=== PATIENT | female | born 1970 | race African-American/Black ===

== ENCOUNTER 2016-07-09 18:13 | Emergency (ER) | payer OTHER ==
[~2016-07-09 18:13] MED LIST: DELTASONE20 MG PO; GUAIFENESIN-COD10 ML PO; PERCOCET 325 MG1 TA2 PO; PROVENTIL HFA6.7 GM INH; ZITHROMAX250 M2 PO
[2016-07-09] MEDS ORDERED: METOPROLOL SUCC50 M2 PO (18:56)
[2016-07-09] MEDS ORDERED: CLOPIDOGREL75 M1 PO (18:57)
[2016-07-09] MEDS ORDERED: AMLODIPINE BESY10 M1 PO (18:57)
[2016-07-09] MEDS ORDERED: PROAIR HFA8.5 GM INH (19:00)
--- NOTE | 2016-07-09 19:01 | ED INFLUENZA/URI COMPLAINT ---
History of Present Illness General Chief Complaint: General Adult Stated Complaint: "I THINK I HAVE A HEAD COLD"...MULTIPLE COMP. Source: patient Exam Limitations: no limitations Vital Signs & Intake/Output Vital Signs & Intake/Output Vital Signs Date Time Temp Pulse Resp B/P Pulse O2 O2 Flow FiO2 Ox Delivery Rate 07/09 2099 98.1 92 22 166/74 95 Room Air 07/09 1936 97 07/09 191 Room Air 07/09 1824 97.8 83 22 155/78 97 Room Air Allergies Coded Allergies: penicillin V (Intermediate, HIVES 12/01/15) lisinopril (LIPS SWELL AND DYSPNEA 07/09/16) Reconcile Medications Albuterol Sulfate (Proair Hfa) 90 MCG HFA.AER.AD 2 PUF INH Q4-6 PRN PRN RESPIRATORY (Reported) Albuterol Sulfate (Ventolin Hfa) 90 MCG HFA.AER.AD 2 PUF INH Q4-6 PRN PRN WHEEZING Amlodipine Besylate (Unknown Strength) TABLET (Unknown Dose) PO DAILY HEART/BP (Reported) Azithromycin (Zithromax) 500 MG TABLET 1 TAB PO DAILY BRONCHITIS Benzonatate (Tessalon Perle) 100 MG CAPSULE 1 CAP PO TID PRN COUGH Clopidogrel Bisulfate (Clopidogrel) 75 MG TABLET 1 TAB PO DAILY BLOOD THINNER (Reported) Metoprolol Succinate 50 MG TAB.ER.24H 1 TAB PO DAILY HEART/BP (Reported) Prednisone 10 MG TABLET 1 TAB PO BID INFLAMMATION DAY1/DAY2 FOUR TABS DAILY DAY3/DAY4 THREE TABS DAILY DAY5/DAY6 TWO TABS DAILY DAY7 ONE TAB Triage Note: PER PT COUGH, CONGESTED SINCE SATURDAY, DID NOT SEE Triage Nurses Notes Reviewed? yes Onset: Gradual Duration: constant Timing: recent history Severity: moderate Severity Numbers: 5 HPI: Patient is a 45-year-old female with past medical history of asthma who presents to emergency room with a 2 to three-day history of upper rest for a complaints such as cough wheezing or pleuritic chest pain and generalized weakness and fatigue. Patient has been using her albuterol inhaler with minimal relief of symptoms. Patient has positive sick contacts at home. Denies any chest pain and arm pain jaw pain hemoptysis leg swelling and is otherwise without complaints. (NOLBERTO BALDERRAMA,RUTH) Past History Travel History Traveled to [place] past 21 day No Medical History Any Pertinent Medical History? see below for history Neurological: NONE EENT: NONE Cardiovascular: hypertension Respiratory: asthma Gastrointestinal: NONE Hepatic: NONE Renal: NONE Musculoskeletal: NONE Psychiatric: NONE Endocrine: NONE Blood Disorders: NONE Cancer(s): NONE EDITOR DICTIONARY/Reproductive: NONE Surgical History Surgical History: non-contributory, N Psychosocial History What is your primary language Sinhala Tobacco Use: Never used Family History Hx Contributory? No (RUTH DUVAL) Review of Systems Review of Systems Constitutional: Reports: see HPI. EENTM: Reports: see HPI. Respiratory: Reports: see HPI, cough, wheezing. Cardiovascular: Reports: no symptoms. GI: Reports: no symptoms. Genitourinary: Reports: no symptoms. Musculoskeletal: Reports: no symptoms. Skin: Reports: no symptoms. Neurological/Psychological: Reports: no symptoms. Hematologic/Endocrine: Reports: no symptoms. Immunologic/Allergic: Reports: no symptoms. All Other Systems: Reviewed and Negative (RUTH DUVAL) Physical Exam Physical Exam General Appearance: no apparent distress, comfortable Ears, Nose, Throat: normal ENT inspection, moist mucous membrane, hearing grossly normal, Tympanic normal, pharynx normal Respiratory: NO RESPIRATORY DISTRESS, BILATERAL POSTERIOR EXPIRATORY WHEEZING NOTED Comments: Well-developed well-nourished person in no acute distress HEENT: Normal EENT exam, extraocular motion intact, no nystagmus. Pupils equally round and reactive to light and accommodation. Nose is atraumatic. External auditory canal and Tympanic membranes clear. Pharynx normal. No swelling or edema. Neck: Supple, no lymphadenopathy, normal range of motion without pain or tenderness Back: Nontender, no CVA tenderness. Cardiovascular: Regular rate and rhythms no murmurs rubs or gallops, normal JVP Abdomen: Soft, nontender nondistended, no appreciable organomegaly. Normal bowel sounds. No ascites Extremity: No edema, no calf tenderness to palpation, normal and equal pulses. Neuro: Alert oriented x3, motor sensory normal, Skin: No appreciable rash on exposed skin, skin is warm and dry. Psych: Mood and affect is normal, memory and judgment is normal. Core Measures Severe Sepsis Present: No Septic Shock Present: No (RUTH DUVAL) Progress Differential Diagnosis: influenza, meningitis, neutropenia, otitis, pneumonia, pharyngitis, sinusitis, ASTHMA, PE, PTX, TN, COPD Plan of Care: Orders Procedure Date/time Status XRY-CHEST XRAY, PA AND LATERAL 07/09 1825 Active Patient had significant resolution of wheezing after multiple examinations. UPON discharge patient looks well no apparent distress and will comply with discharge instructions Patient will be treated for concerns of bronchitis and asthma patient was given follow-up to pulmonary (RUTH DUVAL) Diagnostic Imaging: Viewed by Me: Radiology Read. Initial ED EKG: none Comments: PATIENT: BAYRON GUTIERREZ PRESENT AGE: 45 PATIENT ACCOUNT NO: [id number] : 68 LOCATION: [facility] ORDERING PHYSICIAN: RUTH BALDERRAMA SERVICE DATE: 07/09/16 EXAM TYPE: RAD - XRY-CHEST XRAY, PA AND LATERAL EXAMINATION: XR CHEST CLINICAL INFORMATION: Cough and sputum production COMPARISON: Chest x-ray from 05/30/2008 TECHNIQUE: 2 views of the chest were obtained. FINDINGS: Heart size and pulmonary vascularity is within normal limits. There is interstitial and peribronchial thickening throughout the lungs which may be related to some mild interstitial inflammation. No focal area of consolidation or atelectasis is seen. There is no pneumothorax or pleural effusion. There is some hypertrophic spurring in the dorsal spine. No acute bony abnormality. IMPRESSION: Mild diffuse interstitial and peribronchial thickening which is more pronounced when compared to the 2008 study. Some mild interstitial inflammatory changes may be present. No focal consolidation. DICTATED BY: MALINDA MONTOYA MD DATE/TIME DICTATED:07/09/161919 FREIGHT SEPARATOR:GREGORIO DATE/TIME TRANSCRIBED:07/09/161919 (RUTH DUVAL) Departure Departure Disposition: HOME OR SELF CARE Condition: Stable Clinical Impression Primary Impression: Asthma Secondary Impressions: Bronchitis Referrals: DAJUAN QUINTANA,ODETTE UNKNOWN (PCP/Family) Additional Instructions: As discussed BEGIN the prescription of prednisone tomorrow as YOU received this medication in the ER today. Begin the prescription of azithromycin, Tessalon Perles, and Ventolin for your symptoms. Prescriptions waiting at [facility] pharmacy. If symptoms worsen return to the emergency room. If no better on 2 days follow- up with roll tender Dr. Diane Departure Forms: Customer Survey General Discharge Information Prescriptions: Current Visit Scripts Prednisone 1 TAB PO BID #19 TAB DAY1/DAY2 FOUR TABS DAILY DAY3/DAY4 THREE TABS DAILY DAY5/DAY6 TWO TABS DAILY DAY7 ONE TAB Azithromycin (Zithromax) 1 TAB PO DAILY #5 TAB Albuterol Sulfate (Ventolin Hfa) 2 PUF INH Q4-6 PRN PRN WHEEZING #1 INHAL Benzonatate (Tessalon Perle) 1 CAP PO TID PRN COUGH #21 CAP (RUTH DUVAL) PA/SKULL SPLITTER Co-Sign Statement Statement: ED Attending supervision documentation- [] I saw and evaluated the patient. I have also reviewed all the pertinent lab results and diagnostic results. I agree with the findings and the plan of care as documented in the PA's/SKULL SPLITTER's documentation. [X] I have reviewed the ED Record and agree with the PA's/SKULL SPLITTER's documentation. [] Additions or exceptions (if any) to the PAs/SKULL SPLITTER's note and plan are summarized below: [] (YRIS QUINTANA,ARVIND Hollis)
--- NOTE | 2016-07-09 19:26 | RADIOLOGY REPORT ---
EXAMINATION: XR CHEST CLINICAL INFORMATION: Cough and sputum production COMPARISON: Chest x-ray from 05/30/2008 TECHNIQUE: 2 views of the chest were obtained. FINDINGS: Heart size and pulmonary vascularity is within normal limits. There is interstitial and peribronchial thickening throughout the lungs which may be related to some mild interstitial inflammation. No focal area of consolidation or atelectasis is seen. There is no pneumothorax or pleural effusion. There is some hypertrophic spurring in the dorsal spine. No acute bony abnormality. IMPRESSION: Mild diffuse interstitial and peribronchial thickening which is more pronounced when compared to the 2008 study. Some mild interstitial inflammatory changes may be present. No focal consolidation.
[2016-07-09] MEDS ORDERED: TESSALON PERLE100 M1 PO (20:32)
[2016-07-09] MEDS ORDERED: VENTOLIN HFA18 GM INH (20:32)
[2016-07-09] MEDS ORDERED: PREDNISONE10 M2 PO (20:32)
[2016-07-09] MEDS ORDERED: ZITHROMAX500 M2 PO (20:32)
[2016-07-09 21:00] VITALS: BP 166/74
== END 2016-07-09 21:01 ==
LOC: ERH 18:13
DX: J45.909 Unspecified asthma, uncomplicated (principal); R07.89 Other chest pain
CPT/HCPCS: 1263